=== PATIENT | female | born 1960 | race Two or more races ===

== ENCOUNTER 2017-05-09 09:18 | Outpatient (CLI) | payer OTHER ==
[~2017-05-09 09:18] MED LIST: SYNTHROID100 MCG PO; SYNTHROID88 MCG PO
== END 2017-05-09 13:57 | disposition home or self-care (01) ==
LOC: MRI 09:18
DX: C56.9 Malignant neoplasm of unspecified ovary (principal)
CPT/HCPCS: 72196; A9579

== ENCOUNTER 2017-06-07 09:58 | Outpatient (CLI) | payer OTHER | END 2017-06-07 11:43 | disposition home or self-care (01) | LOC: LAB 09:58 | DX: D48.4 Neoplasm of uncertain behavior of peritoneum (principal); D48.3 Neoplasm of uncertain behavior of retroperitoneum; R93.5 Abnormal findings on diagnostic imaging of other abdominal regions, including retroperitoneum ==

== ENCOUNTER 2017-06-07 10:02 | Outpatient (CLI) | payer OTHER | END 2017-06-07 11:43 | disposition home or self-care (01) | LOC: RAD 10:02 | DX: D48.4 Neoplasm of uncertain behavior of peritoneum (principal); D48.3 Neoplasm of uncertain behavior of retroperitoneum; R93.5 Abnormal findings on diagnostic imaging of other abdominal regions, including retroperitoneum ==

== ENCOUNTER 2017-06-13 12:30 | Inpatient (IN) | payer OTHER ==
[~2017-06-13] VITALS: Ht 165.1 cm; Wt 86.2 kg
[2017-06-13] MEDS ORDERED: LOSARTAN POTASS25 MG (16:00)
[2017-06-13] MEDS ORDERED: TOPROL XL25 MG (16:01)
[2017-06-13] MEDS ORDERED: HYDROCHLOROTH12.5 MG (16:01)
[2017-06-25] MEDS ORDERED: KETO10TA2 PO (08:11)
[2017-06-25] MEDS ORDERED: URIN D.S. TABL1 EACH PO (08:11)
[2017-06-25] MEDS ORDERED: OXYC1TAB9 PO (08:11)
== END 2017-06-25 09:35 | disposition home or self-care (01) | DRG 828 ==
LOC: O/R 06-20 07:31 → SURH 06-20 12:30 → SURG 06-20 15:33
PROVIDERS: Surgery
PROC: 0DBU0ZZ Excision of Omentum, Open Approach (ICD-10-PCS; 2017-06-20)
PROC: 0WBH0ZX Excision of Retroperitoneum, Open Approach, Diagnostic (ICD-10-PCS; principal; 2017-06-20 12:30)
DX: C48.0 Malignant neoplasm of retroperitoneum (principal); I10 Essential (primary) hypertension; K21.9 Gastro-esophageal reflux disease without esophagitis

== ENCOUNTER 2017-08-27 09:09 | Outpatient (CLI) | payer OTHER ==
[~2017-08-27 09:09] MED LIST changes: +HYDROCHLOROTH12.5 MG; +KETO10TA2 PO; +LOSARTAN POTASS25 MG; +OXYC1TAB9 PO; +TOPROL XL25 MG; +URIN D.S. TABL1 EACH PO
== END 2017-08-27 15:57 | disposition home or self-care (01) ==
LOC: TOM 09:09
DX: C49.5 Malignant neoplasm of connective and soft tissue of pelvis (principal)
CPT/HCPCS: 71260; 74177; Q9965

== ENCOUNTER 2019-03-11 08:47 | Outpatient (CLI) | payer OTHER | END 2019-03-11 15:00 | disposition home or self-care (01) | LOC: LAB 08:47 | DX: E78.1 Pure hyperglyceridemia (principal); R73.03 Prediabetes ==